=== PATIENT | male | born 1970 | race Caucasian/White ===

== ENCOUNTER → 2019-05-31 15:51 | Outpatient (CLI) | payer OTHER, SELFPAY ==
[2019-05-31 13:52] VITALS: BMI 27.1
--- NOTE | 2019-05-31 15:58 | RAD_ITS ---
STUDY: X-RAY - RIGHT SHOULDER REASON FOR EXAM: Male, 48 years old. Right shoulder pain for several months. TECHNIQUE: 4 view(s) of the shoulder. COMPARISON: None. FINDINGS: Normal glenohumeral articulation. Normal acromioclavicular joint. Normal acromion. Normal humeral head and visualized proximal humerus. The soft tissue structures are unremarkable. There is no demonstrated fracture. Normal visualized pulmonary apex. RAD/Shoulder min 2 Views IMPRESSION: Normal x-ray examination of the shoulder. Electronically Signed: Anisa Silvestre MD at 2:24 EDT , Service support ,
== END ==
PROVIDERS: Family Provider Internal Medicine; PCP Internal Medicine; Referring Provider Internal Medicine; Visit Provider Internal Medicine
DX: M25.511 Pain in right shoulder (principal)
CPT/HCPCS: 73030

== ENCOUNTER 2019-06-28 16:00 | Outpatient (RCR) | payer OTHER, SELFPAY ==
[2019-05-31 13:52] VITALS: BMI 27.1
--- NOTE | 2019-06-21 13:43 | HP.PTEVAL_ITS ---
Patient's Visit Information SAMI MURDOCK is a 48 year old M referred to Physical Therapy by Ange Yun MD with a diagnosis of R shoulder pain. Date of Evaluation: 06/10/19 Physical Therapist: Feliciano Cloud DPT - Visit Plan Frequency: 1-2x /Week Duration: 4-6 Weeks Plan: Start with DFM to bicep tendon, biceps eccentric loading, RTC strenghtneing/stability exercises. - Subjective Findings: Pt. is here today for his initial evaluation with diagnosis of R shoulder pain. He reports having increasing pain over the past 6 months, but has become really painful over the last 2 months. Pt. reports no mech of injury. No N/T. Pt. reports pain at anterior shoulder and lateral aspect of subacromial space. Pt. has increased pain at light and with reaching out to the side. He had an xray- no abnormalities noted. 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 Pt. thinks his increased sedintary lifestyle maybe has added to his issue. He has not tried any exercises, ice or heat. He has started taking meloxicam with mild relief. Pt. is hopeful to increase strength and decrease his pain. - Pain R shoulder Pain Intensity (Out of 10): 3 Pain Intensity Range: 1, 6 - Objective POSTURE: Pt. has rouned shoulders, but is able to correct with VCing. PALPATION: Pt. has pain along bicipital groove and further along long head of biceps. Pt. has pain at subacromial space, anterior portion. NEURO: normal bilaterally. ROM: L shoulder- full wthout increase in symptoms. R shoulder- flexion 170deg increase NW starting at ~130deg; abd 170deg increased pain starting ~130deg. functional IR L5 increase NW, functional ER C5 mild increase NW. MMT: LUE- 5/5 throughout. RUE: wrist/elbow 5/5, mild discomfort with supination. Shoulder- flexion 5-/5 NE, abd 5-/5 NE; ER 4+/5, IR 5/5; ext 5/5. - Special Tests R Shoulder Empty Can - SS: Positive R Shoulder Belly Press - SupScap: Negative R Shoulder Neer - Impingement: Positive R Shoulder Mckinney Laci - Impingement: Positive R Shoulder Biceps Load Test - Labrum: Negative R Shoulder Speeds Test - Labrum/Biceps: Positive - Goals Goal 1:: Pt. to be I with HEP. Goal Time Frame: 4-6 Weeks Goal 2:: Pt. to have full ROM shoulder ROM without increase in symptoms. Goal Time Frame: 4-6 Weeks Goal 3:: Pt. to have full strength in R shoulder without increase in symptoms. Goal Time Frame: 4-6 Weeks Goal 4:: Pt. to sleep throughout the night withotu increase in symptoms. Goal Time Frame: 4-6 Weeks Goal 5:: Pt. to complete all work duties without increase in symptoms. Goal Time Frame: 4-6 Weeks - Rehabilitation Potential Physical Therapy Diagnosis: Pt. has signs and symptoms consistent wtih R shoulder pain, most like biceps tendonitis and subsequent RTC tendonitis (supraspintus). Pt. would benefit from PT to work on RTC stability/strengthening, biceps tendon loading. Rehabilitation Potential: Excellent - Anticipated Interventions Patient/Client Instruction: Educate patient on: Condition, Plan of Care, Risk Factors, Benefits of Fitness Program For the Purpose of:: To improve self management, To prevent re-injury, To improve ability to perform tasks related to life management Therapeutic Exercise to Include: Strength training, Power training, Endurance training, Postural training, Flexibilty training, Passive ROM, Active ROM, Sc apular Strength/Stabilization For the Purpose of:: To decrease pain, To decrease swelling/inflammation, To increase ROM, To improve nutrient delivery to tissue, To increase oxygenation perfusion, To improve muscle performance and motor function, To improve health of tissue, To decrease soft tissue restriction, To increase flexibility/ROM Thank you for the opportunity to evaluate your patient. For Medicare and Medicare HMO plans, please review the plan of care and approve it. It will need to be FAXED BACK to us at [phone] for Medicare purposes. For Medicare only, by signing this I certify the plan of care. Please let me know if there are questions or concerns regarding this plan of care. Physician Signature:___ Date:
--- NOTE | 2019-07-01 09:38 | HP.PTREVAL_ITS ---
Ange Yun MD, It has been my pleasure to treat SAMI MURDOCK over the last 2 visits for R shoulder pain. Please see the progress note below for an update on the physical therapy plan of care! Subjective: Pt. reports being conserned about new elbow pain. He feels in the mornings that his arm is very weak and sore, but improves as he gets his arm moving. Pt. denies N/T. Pt. reporst being compliant with exercises x2 daily. Pt. continues to have anterior shoulder pain and elbow pain. Objective/Function: Pt. tolerated all strengthening exercises. Pt. contiunes to have presence of bicipital tendonitis and most likely supraspinatus involvement. Pt.is now describing icnreased weakness in RUE. Pt. is also complaining of increased elbow pain and stiffness. Pt. desires to return to physician at this point intime. Plan Plan: Pt. to follow back up with physician, then back with PT if needed. Pt. has been given HEP to work on stabilitya nd RTC strengthening. Goals Goal 1:: Pt. to be I with HEP. Goal Time Frame: 4-6 Weeks Goal Progress: Goal Met Goal 2:: Pt. to have full ROM shoulder ROM without increase in symptoms. Goal Time Frame: 4-6 Weeks Goal Progress: Progressing Goal 3:: Pt. to have full strength in R shoulder without increase in symptoms. Goal Time Frame: 4-6 Weeks Goal 4:: Pt. to sleep throughout the night withotu increase in symptoms. Goal Time Frame: 4-6 Weeks Goal Progress: Not Progressing Goal 5:: Pt. to complete all work duties without increase in symptoms. Goal Time Frame: 4-6 Weeks Goal Progress: Not Progressing Anticipated Interventions Patient/Client Instruction: Educate patient on: Condition, Plan of Care, Risk Factors, Benefits of Fitness Program For the Purpose of:: To improve self management, To prevent re-injury, To improve ability to perform tasks related to life management Therapeutic Exercise to Include: Strength training, Power training, Endurance training, Postural training, Flexibilty training, Passive ROM, Active ROM, Scapular Strength/Stabilization For the Purpose of:: To decrease pain, To decrease swelling/inflammation, To increase ROM, To improve nutrient delivery to tissue, To increase oxygenation perfusion, To improve muscle performance and motor function, To improve health of tissue, To decrease soft tissue restriction, To increase flexibility/ROM Please do not hesitate to contact me at [phone] by phone or Fax: if you have questions or concerns regarding this new plan of care! Sincerely, FRANCISCO JAVIER FuchsT
== END 2019-06-28 17:00 | disposition home or self-care (01) ==
LOC: PT 16:00
PROVIDERS: Family Provider Internal Medicine; PCP Internal Medicine; Referring Provider Internal Medicine; Visit Provider Internal Medicine
DX: M25.511 Pain in right shoulder (principal)
CPT/HCPCS: 97110; 97161

== ENCOUNTER → 2019-08-31 08:58 | Outpatient (CLI) | payer OTHER, SELFPAY ==
[2019-08-19 15:41] VITALS: BMI 27.1
--- NOTE | 2019-08-31 08:58 | MRI_ITS ---
STUDY: MRI RIGHT SHOULDER REASON FOR EXAM: Male, 49 years old. adhesive capsulitis right shoulder,weakness/pain TECHNIQUE: Standardized fat and water weighted pulse sequences were obtained in all 3 orthogonal planes. COMPARISON: None. FINDINGS: Mild supraspinatus and infraspinatus tendinosis and peritendinitis is but no macro tear or muscular atrophy. There is subscapularis tendinosis with tendon thickening, but without a demonstrated tendon tear. Normal teres minor tendon. Normal supraspinatus muscle. Normal infraspinatus muscle. Normal subscapularis muscle. Normal teres minor muscle. Normal glenohumeral articulation. There is a cortical erosion at the insertion of the infraspinatus tendon. Normal biceps labral complex. Normal intracapsular long biceps tendon. Chronic tear of the superior labrum from anterior to posterior (SLAP 2 tear). Dry fibroinflammatory capsulitis suggestive of clinical adhesive capsulitis. Normal rotator interval. Moderate acromioclavicular joint arthrosis with capsulitis and inferior osteophyte formation producing medial outlet stenosis. There is a Type II morphology (curved), with a neutral orientation. There is no subacromial-subdeltoid bursal fluid. Normal visualized coracohumeral and coracoacromial ligaments. Normal quadrilateral space. Normal axillary space. Normal deltoid muscle. Normal trapezius muscle. MRI/Upper Ext Joint Only(Routine) IMPRESSION: 1. Suspect clinical adhesive capsulitis. 2. Mild supraspinatus and infraspinatus tendinosis and peritendinitis is but no macro tear or muscular atrophy. 3. Chronic SLAP 2 tear. 4. Moderate, acromioclavicular joint arthrosis with capsulitis and osteophyte formation producing medial outlet stenosis. Electronically Signed: Rodo Reeves MD at 17:47 EST Tel , Service support ,
== END ==
PROVIDERS: PCP Internal Medicine; Referring Provider Orthopaedic Surgery; Visit Provider Orthopaedic Surgery
DX: M75.01 Adhesive capsulitis of right shoulder (principal)
CPT/HCPCS: 73221

== ENCOUNTER 2019-09-13 08:41 | Outpatient (RCR) | payer OTHER, SELFPAY ==
[2019-09-13 08:05] VITALS: BMI 27.1
--- NOTE | 2019-09-13 09:58 | HP.PTEVAL_ITS ---
Patient's Visit Information SAMI MURDOCK is a 49 year old M referred to Physical Therapy by Felipe Fenton DO with a diagnosis of RIGHT SHOULDER ADHESIVE CAPSULITUS,LABRAL TEARING. Date of Evaluation: 09/13/19 Physical Therapist: Richmond Qureshi, PT, Cert MDT, OCS - Visit Plan Frequency: 2x /Week Duration: 5WEEKS Plan: PT INTERVETIONS MHP/CP ,PROM /AAROM,MANUAL THERAPY PROM,G-H JOINTS MOBS 2- 4,SCAPULAR MOBS - Subjective Findings: This 49 y/o male presents to physical therapy with right shoulder pain adhesive capsulitis . Patient 8 months developed shoulder pain which progressivelly worse with gradual loss of ROM. Patient had PT in Nov with exercises. Seen intially seen family DR eventually seen DR Fenton recommded PT for ROM and did injection today today.MRI showed slap 2 labral tear ,osteophyete. Patient melocicam. Patient has pain with limitations with activilty [place] ,housework tasks and job demands. Patient denies parathesia/tingling. Patient symptoms affects sleeping. Patient symptoms affects QOL. SOCAIL : SINGLE. 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 PALPATION: tender AC. NEURO: INTACT. AROM: shoulder flexion 120 degrees ,abd 90 degrees,ER 60 degree IR S2. SCAPULAR -HUMERAL FUNCTION: < 1:1. G-H JOINT MOBLITY: mod restricted all planes. MMT: RTC 4-/5 ,deltoid 4-/5,scapular 3/5 - Special Tests R Shoulder Supine Impingement Test - RC Tear: Negative R Shoulder Drop Sign - IS Test: Negative R Shoulder Empty Can - SS: Positive R Shoulder Belly Press - SupScap: Negative R Shoulder Neer - Impingement: Positive R Shoulder Mckinney Laci - Impingement: Positive R Shoulder Speeds Test - Labrum/Biceps: Negative R Shoulder AC Resisted - AC: Negative R Shoulder Shrug Sign - OA/Adhesive Capsulitis: Positive - Goals Goal 1:: Patient to be Independant with HEP Goal Time Frame: 4-6 Weeks Goal 2:: Patient decrease shoulder pain by 70% or> to improve function. Goal Time Frame: 4-6 Weeks Goal 3:: Patient to increase ROM shoulder flexion 150 degrees ,abduction 150degrees ,ER 90 IR L1 to improve function. Goal Time Frame: 4-6 Weeks Goal 4:: Patient increase strength of rigt shoulder by 4/5 RTC and deltoid 4/5 to improve function. Goal Time Frame: 4-6 Weeks Goal 5:: Patient to improve quick dash by 10 points or > to improve QOL and function. Goal Time Frame: 4-6 Weeks - Rehabilitation Potential Physical Therapy Diagnosis: This patient has adhesive capsultitus with pain ,decrease ROM,strength ,poor Scapular -humeral function,capsular restriction impairs ADLS' and housework tasks ,job demnads. Rehabilitation Potential: Good - Anticipated Interventions Patient/Client Instruction: Educate patient on: Condition, Plan of Care For the Purpose of:: To decrease pain, To improve nutrient delivery to tissue, To improve muscle performance and motor function, To improve ability to perform ADL's, To increase tolerance to activity/condition/position, To improve performance and independence with ADL's, To improve ability of physical actions for home/community/work/leisure, To improve health of tissue, To decrease soft tissue restriction, To increase flexibility/ROM, To reduce risk of recurrence, To improve ability to perform tasks related to life management Therapeutic Exercise to Include: Postural training, Flexibilty training, Passive ROM, Active ROM Comment: SHOULDER For the Purpose of:: To decrease pain, To increase ROM, To improve nutrient delivery to tissue, To increase oxygenation perfusion, To improve muscle performance and motor function, To improve ability to perform ADL's, To improve performance and independence with ADL's, To improve ability of physical actions for home/community/work/leisure, To improve health of tissue, To decrease soft tissue restriction, To increase flexibility/ROM Manual Therapy Techniques to Include: Mobilization Comment: G-H GR 2-4 For the Purpose of:: To decrease pain, To increase ROM, To improve muscle performance and motor function, To increase tolerance to activity/condition/position, To improve ability of physical actions for home/community/work/leisure, To improve health of tissue, To decrease soft tissue restriction, To increase flexibility/ROM Cryotherapy (ice pack, ice massage): Yes Thermo therapy (hot pack): Yes For the Purpose of:: To decrease pain, To increase ROM, To improve muscle performance and motor function, To improve ability to perform ADL's, To improve health of tissue, To decrease soft tissue restriction, To increase flexibility/ROM Thank you for the opportunity to evaluate your patient. For Medicare and Medicare HMO plans, please review the plan of care and approve it. It will need to be FAXED BACK to us at [phone] for Medicare purposes. For Medicare only, by signing this I certify the plan of care. Please let me know if there are questions or concerns regarding this plan of care. Physician Signature: Date:
--- NOTE | 2019-11-11 13:40 | HP.PT.NRP ---
SAMI MURDOCK was seen in my office for initial evaluation on 09/13/19. The following Plan of Care was established for this patient: Initial Frequency: 2x /Week Initial Duration: 5WEEKS Patient/Client Instruction: Educate patient on: Condition, Plan of Care For the Purpose of:: To decrease pain, To improve nutrient delivery to tissue, To improve muscle performance and motor function, To improve ability to perform ADL's, To increase tolerance to activity/condition/position, To improve performance and independence with ADL's, To improve ability of physical actions for home/community/work/leisure, To improve health of tissue, To decrease soft tissue restriction, To increase flexibility/ROM, To reduce risk of recurrence, To improve ability to perform tasks related to life management Therapeutic Exercise to Include: Postural training, Flexibilty training, Passive ROM, Active ROM For the Purpose of:: To decrease pain, To increase ROM, To improve nutrient delivery to tissue, To increase oxygenation perfusion, To improve muscle performance and motor function, To improve ability to perform ADL's, To improve performance and independence with ADL's, To improve ability of physical actions for home/community/work/leisure, To improve health of tissue, To decrease soft tissue restriction, To increase flexibility/ROM Manual Therapy Techniques to Include: Mobilization Comment: G-H GR 2-4 For the Purpose of:: To decrease pain, To increase ROM, To improve muscle performance and motor function, To increase tolerance to activity/condition/position, To improve ability of physical actions for home/community/work/leisure, To improve health of tissue, To decrease soft tissue restriction, To increase flexibility/ROM Cryotherapy (ice pack, ice massage): Yes Thermo therapy (hot pack): Yes For the Purpose of:: To decrease pain, To increase ROM, To improve muscle performance and motor function, To improve ability to perform ADL's, To improve health of tissue, To decrease soft tissue restriction, To increase flexibility/ROM This patient was last seen in our office . Pertinent comments regarding their Physical therapy will appear below: Patient had seen for PT for HEP shoulder .. MRI showed labral tear . At this point I will be discontinuing this patient from physical therapy. I would be happy to see this patient again in the future if found appropriate by the physician. Thank you! Richmond Qureshi, PT, Cert MDT, OCS
== END 2019-09-13 19:00 | disposition home or self-care (01) ==
LOC: PT 08:41
PROVIDERS: PCP Internal Medicine; Referring Provider Orthopaedic Surgery; Visit Provider Orthopaedic Surgery
DX: M75.01 Adhesive capsulitis of right shoulder (principal); S43.401D Unspecified sprain of right shoulder joint, subsequent encounter
CPT/HCPCS: 97110; 97161

== ENCOUNTER 2025-04-25 07:27 | Day surgery (SDC) | payer OTHER, SELFPAY ==
[2025-04-25] VITALS (8 sets, daily range): BP systolic 95–130; BP diastolic 62–86; PULSE 52–63; RESP 14–16; TEMP 36.1–36.3; O2SAT 97–100; BMI 27.0
--- OUTSIDE RECORDS SUMMARY | 2025-04-25 07:31 | XMS RPT_ITS | CCD ---
Author Organization [facility] Care Team Providers Care Dramatic Reader Name Role Phone Juanis COLE Luke E Unavailable Juanis COLE Luke E Unavailable [facility] Unavailable Unavailable Unavailable [facility] Unavailable Jessica Harrison LPN Unavailable Tawnya Topete LPN Unavailable Unavailable JUANIS, LUKE E Consulting Unavailable RAY VILLANUEVA Attending Unavailable RAY VILLANUEVA Primary Care Unavailable RAY VILLANUEVA Admitting Unavailable JUANIS, LUKE E Referring Unavailable PROVIDER, UNKNOWN Consulting Unavailable EVAN MARTINEZ CNP Attending Unavailable EVAN MARTINEZ CNP Primary Care Unavailable EVAN MARTINEZ CNP Admitting Unavailable Froylan Bran LPN Unavailable Unavailable Juanis, Luke Referring Unavailable Juanis, Luke Primary Care Unavailable Martinez Mancuso Attending Unavailable Medications Current Medications Medication Drug Class(es) Dates Sig (Normalized) Sig (Original) atorvastatin 20 mg oral tablet (1 source) HMG-CoA Reductase Inhibitor Start: 03-03-2025 atorvastatin 20 mg tablet ; 1 (one) tablet QHS for 30 days Quantity: 30 {Tablet} Refills: 5 Ordered: 03-Mar-2025 DOUGLAS Wagoner Start: 03-Mar-2025 Start: 03-03-2025 atorvastatin 2 0 mg tablet ; 1 (one) tablet QHS for 30 days Quantity: 30 {Tablet} Refills: 5 Ordered: 03-Mar-2025 DOUGLAS Wagoner E Start: 03-Mar-2025 lisinopril 10 mg oral tablet (12 sources) Angiotensin Converting Enzyme Inhibitor Start: 02-28-2025 lisinopriL 10 mg tablet ; 1 (one) tablet daily for 90 days Quantity: 90 {Tablet} Refills: 3 Ordered: 28-Feb-2025 DOUGLAS Wagoner Start: 28-Feb-2025 Start: 02-28-2025 lisinopriL 10 mg tablet ; 1 (one) tablet daily for 90 days Quantity: 90 {Tablet} Refills: 3 Ordered: 28-Feb-2025 DOUGLAS Wagoner Start: 28-Feb-2025 Start: 02-19-2025 lisinopriL 10 mg tablet ; 1 (one) tablet daily for 0 days Quantity: 30 {Tablet} Refills: 0 Ordered: 19-Feb-2025 DOUGLAS Wagoner Start: 19-Feb-2025 Start: 11-20-2024 lisinopriL 10 mg tablet ; 1 (one) tablet daily for 0 days Quantity: 90 {Tablet} Refills: 0 Ordered: 20-Nov-2024 DOUGLAS Wagoner Start: 20-Nov-2024 Start: 08-19-2024 lisinopriL 10 mg tablet ; 1 (one) tablet daily for 0 days Quantity: 90 {Tablet} Refills: 0 Ordered: 19-Aug-2024 DOUGLAS Wagoner Start: 19-Aug-2024 Start: 02-21-2024 lisinopriL 10 mg tablet ; 1 (one) tablet daily for 0 days Quantity: 90 {Tablet} Refills: 1 Ordered: 21-Feb-2024 DOUGLAS Wagoner Start: 21-Feb-2024 Start: 11-20-2023 lisinopriL 10 mg tablet ; 1 (one) tablet daily for 0 days Quantity: 30 {Tablet} Refills: 2 Ordered: 20-Nov-2023 DOUGLAS Wagoner Start: 20-Nov-2023 Start: 08-30-2023 lisinopriL 10 mg tablet ; 1 (one) tablet daily for 0 days Quantity: 30 {Tablet} Refills: 2 Ordered: 30-Aug-2023 DOUGLAS Wagoner Start: 30-Aug-2023 Completed/Discontinued Medications Medication Drug Class(es) Dates Sig (Normalized) Sig (Original) omeprazole 20 mg delayed release oral capsule (12 sources) Proton Pump Inhibitor End: 02-28-2025 omeprazole 20 mg capsule,delayed release ; daily (20 mg) End: 28-Feb-2025 Status: Inactive Problems Active Problems Problem Classification Problem Date Documented Da te Episodic/Chronic Disorders of lipid metabolism (7 sources) Dyslipidemia; Translations: [Hyperlipidemia, unspecified] 02-28-2025 Chronic Essential hypertension (20 sources) Hypertensive disorder; Translations: [Essential (primary) hypertension] 08-30-2023 Chronic Headache; including migraine (16 sources) Headache; Translations: [Headache] 02-26-2024 Episodic Other screening for suspected conditions (not mental disorders or infectious disease) (20 sources) Patient encounter status; Translations: [Encounter for screening for lipoid disorders] 08-30-2023 Episodic Unclassified (3 sources) Follow up for chronic condition - The patient is here for follow-up of hypertension. The patient always takes the prescribed medications. No side effects noted. The patient has an active lifestyle but no regular exercise program. The patient's out of office blood pressure checks occur occasionally. The patient states that headaches are rarely noted. 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 The patient has inadequate caloric intake and takes no supplemental vitamins & iron. The patient exercises 3 - 4 times per week. The patient sleeps 7 hours per night. 08-30-2023 Unclassified (8 sources) Hypertension - The onset of the hypertension has been gradual. The hypertension has been occurring in a recurrent pattern for 1 week. The course has been constant. The JNC classification is Stage 1 hypertension - 140-159 or 90-99 (151/90, 140/80; patient does not write BP down, approximate values) The symptoms include dyspnea on exertion ( but none since), fatigue and headache, but do not include chest pain, edema, palpitations, visual changes or shortness of breath. Habits include non-smoker and medications as directed. There is no family history of hypertension, myocardial infarction before age 55 or stroke. Note for Hypertension: patient is currently on lisinopril 10 mg; patient gets a weird feeling in his head when BP is high - is the top of his head and said it does not feel right, it feels like pressure (this has been since August); pt has been on lisinopril 10 mg since 08/30/2023 02-26-2024 Results Test Name Value Interpretation Reference Range Facility [facility] 03-01-2025 Albumin [Mass/Vol] 4.6 g/dL Normal 3.6-5.1 [facility] Comment on above: Performed By: #### 5 363, 7600, [id number] #### [facility] [place] [address] [employer]: Jonathan Gaspar MD Albumin/Globulin [Mass ratio] 2.1 {ratio} Normal 1.0-2.5 [facility] Comment on above: Performed By: #### 5 363, 7600, 44465 #### [facility] [place] [address] [employer]: Jonathan Gaspar MD ALP [Catalytic activity/Vol] 55 U/L Normal 35-144 [facility] Comment on above: Performed By: #### 5 363, 7600, 71895 #### [facility] [place] [address] [employer] [place]: Jonathan Gaspar MD ALT [Catalytic activity/Vol] 31 U/L Normal 9-46 [facility] Comment on above: Performed By: #### 5 363, 7600, 02546 #### [facility] [place] [address] [employer]: Jonathan Gaspar MD AST [Catalytic activity/Vol] 21 U/L Normal 10-35 [facility] Comment on above: Performed By: #### 5 363, 7600, 49671 #### [facility] [place] [address] [employer]: Jonathan Gaspar MD Bilirubin [Mass/Vol] 0.5 mg/dL Normal 0.2-1.2 [facility] Comment on above: Performed By: #### 5 363, 7600, 91176 #### [facility] [address], [address] [place] [address] [place]: Jonathan Gaspar MD BUN/CREATININE RATIO SEE NOTE: Normal 6-22 [facility] Comment on above: Result Comment: Not Reported: BUN and Creatinine are within reference range. Performed By: #### 5 363, 7600, 91986 #### [facility] of [address], [address] [place] [address] [place] [place]: Jonathan Gaspar MD Calcium [Mass/Vol] 9.3 mg/dL Normal 8.6-10.3 [facility] Comment on above: Performed By: #### 5 363, 0, 04645 #### [facility] [address], [address] [place] [address] [place]: Jonathan Gaspar MD Chloride [Moles/Vol] 103 mmol/L Normal 98-110 [facility] Comment on above: Performed By: #### 5 363, 0, 78779 #### [facility] [place] [address] [employer] [place]: Jonathan Gaspar MD CO2 [Moles/Vol] 24 mmol/L Normal 20-32 [facility] Comment on above: Performed By: #### 5 363, 7600, 07971 #### [facility] [place] [address] [employer]: Jonathan Gaspar MD Creatinine [Mass/Vol] 1.05 mg/dL Normal 0.70-1.30 [facility] Comment on above: Performed By: #### 5 363, 7600, 65020 #### [facility] of [place] [address] [address] [address]: Jonathan Gaspar MD GFR/1.73 sq M.predicted among non-blacks MDRD (S/P/Bld) [Vol rate/Area] 84 mL/min/{1.73_m2} Normal > OR = 60 [facility] Comment on above: Performed By: #### 5 363, 7600, 25209 #### [facility] of [place] [address] [place] [place]: Jonathan Gaspar MD Globulin (S) [Mass/Vol] 2.2 g/dL Normal 1.9-3.7 [facility] Comment on above: Performed By: #### 5 363, 7600, 91968 #### [facility] of [place] [address] [employer] [place]: Jonathan Gaspar MD Glucose [Mass/Vol] 96 mg/dL Normal 65-99 [facility] Comment on above: Result Comment: Fasting reference interval Performed By: #### 5 363, 7600, 94591 #### [facility] of [place] [address] [employer]: Jonathan Gaspar MD Potassium [Moles/Vol] 4.4 mmol/L Normal 3.5-5.3 [facility] Comment on above: Performed By: #### 5 363, 0, 79942 #### [facility] of [place] [address] [employer] [place]: Jonathan Gaspar MD Protein [Mass/Vol] 6.8 g/dL Normal 6.1-8.1 [facility] Comment on above: Performed By: #### 5 363, 0, 51399 #### [facility] of [place] [address] [employer]: Jonathan Gaspar MD Sodium [Moles/Vol] 137 mmol/L Normal 135-146 [facility] Comment on above: Performed By: #### 5 363, 7600, 96940 #### [facility] of [place] [address] [employer] [place]: Jonathan Gaspar MD Urea nitrogen [Mass/Vol] 13 mg/dL Normal 7-25 [facility] Comment on above: Performed By: #### 5 363, 7600, 67732 #### [facility] [address], [address] [place] [address] [employer]: Jonathan Gaspar MD LIPID PANEL, [place] [address]- Cholesterol [Mass/Vol] 228 mg/dL High <200 [facility] Comment on above: Performed By: #### 5 363, 7600, 46037 #### [facility] [address], [address] [place] [address] [employer]: Jonathan Gaspar MD Cholesterol in HDL [Mass/Vol] 37 mg/dL Low > OR = 40 [facility] Comment on above: Performed By: #### 5 363, 7600, 63948 #### [facility] [address], [address] [place] [address] [employer] [place]: Jonathan Gaspar MD Cholesterol in LDL [Mass/Vol] 149 mg/dL High [facility] Comment on above: Result Comment: Refe rence range: <100 Desirable range <100 mg/dL for primary prevention; <70 mg/dL for patients with CHD or diabetic patients with > or = 2 CHD risk factors. LDL-C is now calculated using the Jose Ramon-Rajiv calculation, which is a validated novel method providing better accuracy than the Friedewald equation in the estimation of LDL-C. Jose Ramon SANDOVAL et al. CALI. 2013;310(19): 3981-6109 (http://education.EyeScribes.Salesforce Radian6/faq/DUT013) Performed By: #### 5 363, 7600, 98063 #### [facility] [address], [address] [place] [address] [employer] [place]: Jonathan Gaspar MD Cholesterol.total/Ch olesterol in HDL [Mass ratio] 6.2 {ratio} High <5.0 [facility] Comment on above: Performed By: #### 5 363, 7600, 75272 #### [facility] [address], [address] [place] [address] [employer]: Jonathan Gaspar MD NON HDL CHOLESTEROL 191 mg/dL (calc) High <130 [facility] Comment on above: Result Comment: For patients with diabetes plus 1 major ASCVD risk factor, treating to a non-HDL-C goal of <100 mg/dL (LDL-C of <70 mg/dL) is considered a therapeutic option. Performed By: #### 5 363, 7600, 64179 #### [facility] [address], [address] [place] [address] [employer] [place]: Jonathan Gaspar MD Triglyceride [Mass/Vol] 258 mg/dL High <150 [facility] Comment on above: Result Comment: If a non-fasting specimen was collected, consider repeat triglyceride testing on a fasting specimen if clinically indicated. Aponte et al. J. of Clin. Lipidol. 2015;9:129-169. Performed By: #### 5 363, 7600, 42330 #### [facility] [address], [address] [place] [address] [employer] [place]: Jonathan Gaspar MD PSA, TOTALon 03-01-2025 PSA, TOTAL 0.40 ng/mL Normal < OR = 4.00 [facility] Comment on above: Result Comment: The total PSA value from this assay system is standardized against the WHO standard. The test result will be approximately 20% lower when compared to the equimolar-standardized total PSA (Alayna Murrieta). Comparison of serial PSA results should be interpreted with this fact in mind. This test was performed using the Siemens chemiluminescent method. Values obtained from different assay methods cannot be used interchangeably. PSA levels, regardless of value, should not be interpreted as absolute evidence of the presence or absence of disease. Performed By: #### 5 363, 7600, 73615 #### [facility] [address], [address] [place] [address] [employer] [place]: Jonathan Gaspar MD Laboratory - Chemistry and C hemistry - challengeon 02-28-2025 Albumin [Mass/Vol] 4.6 g/dL Normal 3.6 - 5.1 g/dL [facility], [facility] Albumin/Globulin [Mass ratio] 2.1 {ratio} Normal 1.0 - 2.5 [facility] ALP [Catalytic activity/Vol] 55 U/L Normal 35 - 144 U/L [facility]. ALT [Catalytic activity/Vol] 31 U/L Normal 9 - 46 U/L [facility]. AST [Catalytic activity/Vol] 21 U/L Normal 10 - 35 U/L [facility]. Bilirubin [Mass/Vol] 0.5 mg/dL Normal 0.2 - 1 .2 mg/dL [facility], [facility]. Calcium [Mass/Vol] 9.3 mg/dL Normal 8.6 - 10. 3 mg/dL [facility]. Chloride [Moles/Vol] 103 mmol/L Normal 98 - 11 0 mmol/L [facility], [facility]. Cholesterol [Mass/Vol] 228 mg/dL Abnormal [facility]. Cholesterol in HDL [Mass/Vol] 37 mg/dL Abnormal [facility]. Cholesterol in LDL [Mass/Vol] 149 mg/dL Abnormal [facility], [facility]. CO2 [Moles/Vol] 24 mmol/L Normal 20 - 32 mmol/L [facility], [facility]. Creatinine [Mass/Vol] 1.05 mg/dL Normal 0.70 - 1.30 mg/dL [facility], [facility]. GFR/1.73 sq M.predicted among non-blacks MDRD (S/P/Bld) [Vol rate/Area] 84 mL/min/{1.73_m2} Normal [facility], [facility] Glucose [Mass/Vol] 96 mg/dL Normal 65 - 99 mg/dL [facility] Potassium [Moles/Vol] 4.4 mmol/L Normal 3.5 - 5.3 mmol/L [facility] Protein [Mass/Vol] 6.8 g/dL Normal 6.1 - 8.1 g/dL [facility], [facility]. Sodium [Moles/Vol] 137 mmol/L Normal 135 - 146 mmol/L [facility]. Triglyceride [Mass/Vol] 258 mg/dL Abnormal [facility]. Urea nitrogen [Mass/Vol] 13 mg/dL Normal 7 - 25 mg/dL [facility]. No Panel Informationon 02-28 BUN/CREATININE RATIO SEE NOTE: Normal 6 - [address] [facility] [place] [facility] [employer]. CHOL/HDLC RATIO 6.2 Abnormal [facility].; [facility] [employer]. GLOBULIN 2.2 Normal 1.9 - 3.7 [facility]. NON HDL CHOLESTEROL 191 Abnormal [facility]. PSA, TOTAL 0.40 ng/mL Normal [facility] [place] [employer], [employer]. ED MED ADMINISTRATION DETAIL on 09-02-2024 ED MED ADMINISTRATION DETAIL [employer] Medication Administration Record [address] [address] [id number] 09/02/2024 Patient: SAMI MURDOCK Sex: Male : 1970 Age: 54y MEASUREMENTS: Wt: 88.5 kg, Ht/Raciel: 70.0 in, BMI: 27.98 ALLERGIES: No known drug allergies Medication Ordered Medication Administration Date/Time Normal [facility] ED NURSES CLINICAL NOTEon ED NURSES CLINICAL NOTE Nurse Narrative Nurse Clinical Narrative [address] [address] [id number] 09/02/2024 Patient: SAMI MURDOCK Sex: Male : 1970 Age: 54y Disposition: Discharge to Home Disposition Decision Time: 10:15 09/02/2024 Departure Time: 10:21 09/02/2024 TRIAGE Arrived by private vehicle. Historian: patient. Primary physician (Thong Adair). Triage time: 08:48 09/02/2024. Acuity: LEVEL 3. Chief Complaint: (left flank/side pain). Onset. (last Monday). ( Pt fell last Monday injuring his left flank, back. Pt states he coughed last night and it made the pain worse.). SEPSIS SCREEN: NEGATIVE. SIRS criteria negative. No possible sources of infection. -- 08:52 09/02/24 CHRISTINA Enriquez R.N. 08:48 09/02/24. BP: 135/89 MAP: 104. HR: 70. RR: 16. O2 saturation: 100% Temperature: 97.5 F. Pain level now 04/16. -- 08:49 09/02/24 CHRISTINA Enriquez R.N. Measurements: 08:51 09/02/24 Wt: 88.5 kg, Ht/Raciel: 70.0 in, BMI: 27.98 -- 08:51 09/02/24 CHRISTINA Enriquez R.N. Medications: omeprazole 40 mg capsule,delayed release: TAKE 1 CAPSULE BY MOUTH ONCE DAILY -- 13:20 09/02/24 CHRISTINA Enriquez R.N. lisinopril 10 mg tablet: TAKE 1 TABLET BY MOUTH ONCE DAILY -- 13:20 09/02/24 CHRISTINA Enriquez R.N. 1 of 3 Nurse Narrative Allergies: no known drug allergies -- 08:50 09/02/24 CHRISTINA Enriquez R.N. Problems: Hypertension: Active -- 08:50 09/02/24 CHRISTINA Enriquez R.N. Gastroesophageal Reflux Disease: Active -- 08:50 09/02/24 CHRISTINA Enriquez R.N. ADDITIONAL SURGERIES: elbow surgery -- 08:50 09/02/24 CHRISTINA Enriquez R.N. History 08:48 09/02/24. PAST MEDICAL HX: Immunizations not up to date. SOCIAL HX: Never smoker. Occasional alcohol use. No drug use. The patient has not traveled outside the [place] Infectious disease exposure: No infectious disease exposure. ABUSE ASSESSMENT: The patient answered yes to the question(s) Do you feel safe in your home? and no to the question(s) Are you afraid to go home?. SELF HARM ASSESSMENT: Self harm assessment was performed. The patient answered no to the question(s) Have you recently felt down, depressed, or hopeless? and Do you have thoughts of harming or killing yourself?. FALL RISK ASSESSMENT: Fall risk assessment completed. No risk factors identified. -- 08:52 09/02/24 CHRISTINA nEriquez R.N. Interventions 08:48 09/02/24. Advanced care plan discussed with patient. Patient does not have advanced directive. -- 08:52 09/02/24 CHRISTINA Enriquez R.N. PHYSICAL ASSESSMENT 2 of 3 Nurse Narrative 08:56 09/02/24. ( Pt arrives ambulatory to ER#6 c/o left sided posterior back/side pain. Pt offers he fell last Monday and then coughed hard last night and states he was not able to get up from bed without pain. PT has no obvious deformity noted. Pain worse with breathing). GENERAL / NEURO / PSYCH: Alert. Appears in no acute distress. HEENT: Mucous membranes are pink. RESPIRATORY: Respirations not labored. Breath sounds within normal limits. CVS: Normal sinus rhythm noted. Capillary refill less than 2 seconds. SKIN: Skin is warm and dry. -- 09:11 09/02/24 CHRISTINA Enriquez R.N. NURSING PROGRESS NOTES 09:22 09/02/24. Patient walked back from radiology with [employer]. -- 10:09/02/24 CHRISTINA Enriquez R.N. DISPOSITION / DISCHARGE Departure time: 10:21 09/02/2024. Condition at departure: unchanged. Discharge instructions provided and reviewed with the patient. Work note given. Patient verbalized understanding. Written instructions provided in Sami. The patient was discharged by the physician. The patient was discharged home. The patient left ambulatory and via private vehicle. Patient driving. -- 10:09/02/24 CHRISTINA Enriquez R.N. (Electronically signed by Catherine Enriquez R.N. 09/02/24 13:20:52 EST) Generated by [facility] 3 of 3 Normal [facility] ED ORDER SHEET (CPOE ONLY)on 09-02-2024 ED ORDER SHEET (CPOE ONLY) Order Sheet Order Sheet [facility] [address] [facility] [place] [address] [id number] 09/02/2024 Patient: SAMI MURDOCK Sex: Male : 1970 Age: 54y MEASUREMENTS: Wt: 88.5 kg, Ht/Raciel: 70.0 in, BMI: 27.98 ALLERGIES: No known drug allergies MEDICATION/IV/DRIP/F LUID ORDERS Order Description Priority Entered Acknowledged Completed LAB ORDERS Order Description Priority Entered Acknowledged Collected Completed DIAGNOSTIC STUDY ORDERS Order Description Priority Entered Acknowledged Completed Ribs L w/Chest Expiration Stat Stat 09:04 09/02/2024 09:11 Ray Villanueva M.D. 09/02/2024 Catherine Enriquez R.N. Reason for Study: Trauma/Injury STAFF ORDERS Order Description Priority Entered Acknowledged Collected Completed [Electronically signed by Ray Villanueva M.D. (09/02/2024 14:57 EST)] [address] [facility] ED PHYSICIAN CLINICAL REPORT on 09-02-2024 ED PHYSICIAN CLINICAL REPORT Narrative Physician Clinical Narrative [address] [address] [id number] 09/02/2024 Patient: SAMI MURDOCK Sex: Male : 1970 Age: 54y Disposition: Discharge to Home Disposition Decision Time: 10:15 09/02/2024 Departure Time: 10:21 09/02/2024 Measurements Wt: 88.5 kg, Ht/Raciel: 70.0 in, BMI: 27.98 Initial Vital Sign Measured Time BP MAP HR RR O2Sat ETCO2 Temp Pain GCS RTS 08:48 09/02/2024 135/89 104 70 16 100% 97.5 F 9 Time Seen: 08:55 09/02/2024. Historian- patient. HISTORY OF PRESENT ILLNESS Chief Complaint: Injury to CHEST and BACK and CHEST. Location of injuries- (To posterior lateral rib cage on the left.). The injury occurred about 1 weeks ago. Fell: due to ice. ( slipped and fell on ice about a week ago. Had pain to the left posterolateral rib cage would seem to improve slightly. However yesterday he coughed and had a sudden onset more severe pain which by this morning was quite severe. Any truncal movement is quite painful). Occurred at home. The patient complains of moderate pain. No blow to the head, neck pain, loss of consciousness or seizure. Not dazed. REVIEW OF SYSTEMS 1 of 5 Narrative GI: No nausea or vomiting. RESPIRATORY: The patient has had difficulty breathing (Mild pleuritic pain on the left with deep breathing. more so with coughing). EYES: No loss of vision. EARS: No hearing loss. NEUROLOGICAL: No numbness, weakness or headache. PAST HISTORY See nurses notes. Hypertension. Gastroesophageal Reflux Disease: [Active] Hypertension: [Active] Surgeries: elbow surgery Medications: lisinopril 10 mg tablet: TAKE 1 TABLET BY MOUTH ONCE DAILY omeprazole 40 mg capsule,delayed release: TAKE 1 CAPSULE BY MOUTH ONCE DAILY Allergies: no known drug allergies SOCIAL HISTORY Does not use tobacco. 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 ADDITIONAL NOTES The nursing notes have been reviewed. PHYSICAL EXAM Vital Signs: Have been reviewed. Appearance: Alert. Oriented X3. No acute distress. Head: Head non-tender. No swelling of head. Eyes: Pupils equal, round and reactive to light. EOM intact. Neck: Painless ROM. Non-tender. CVS: Heart sounds normal. Respiratory: No respiratory distress. Chest wall injury: moderate tenderness. (mid to lower posterolateral rib cage. No crepitus with palpation). No ecchymosis. No deformity. Breath sounds normal. 2 of 5 Narrative Abdomen: No visible injury. Soft and nontender. Bowel sounds normal. Skin: Skin intact. Skin warm and dry. Normal skin color. Neuro: No motor deficit. LABS, X-RAYS, AND EKG X-Rays: (x-ray were x-rays were read as negative by radiologist. To me it looks like there is a fracture at the posterior 11th rib possibly a minimally nondisplaced fracture of the 10th this is certainly consistent with his clinical exam.). Sternum / Ribs X-rays: On the left, 11th rib fracture(s) present posteriorly. Diagnostic Study Tests: RIBS LT UNILAT W/CHEST EXPIRATION Final EXAM Date: 09/02/2024 09:48:00 EST MsgRcvd: 09/02/2024 09:[address] [address] Patient: SAMI MURDOCK Phone#: : 1970 Age: 54 Gender: M Pt. Type: ER Account: [id number] Location: 052 Ordering: RAY VILLANUEVA Exam Date: 09/02/2024/9:22 Family Phys: Charge Code: 120936 Physician: Cidra Order #: [id number] Dose#: PROCEDURE: X-RAY RIBS LT UNILAT WITH EXPIRATION CHEST COMPARISON: None. INDICATIONS: Trauma. FINDINGS: LUNGS: Normal. No significant pulmonary parenchymal abnormalities. VASCULATURE: Normal. Unremarkable pulmonary vasculature. CARDIAC: Normal. No cardiac silhouette abnormality or cardiomegaly. MEDIASTINUM: Normal. No visible mass or adenopathy. PLEURA: Normal. No effusion or pleural thickening. BONES: Normal. No fracture or visible bony lesion. OTHER: Negative. 3 of 5 Narrative CONCLUSION: No acute disease. 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 COORDINATION OF CARE: Consult called (09:07 09/02/2024). MEDICAL DECISION MAKING: MEDICAL COMPLEXITY MODERATE. Pertinent clinical findings include the significant mechanism of injury. The differential diagnosis includes, but is not limited to, rib fractures and soft tissue injury. The diagnosis appears to be evident. (I disagree with the radiology interpretation and feel that ther (more content not included)... Normal [facility] ED SUPER BILLon 09-02-2024 ED [facility] BILL [facility] [address] [place] [address] [id number] 09/02/2024 Patient: SAMI MURDOCK Sex: Male : 1970 Age: 54y Item Professional Category Description Facility Code Code Quantity Fee Total Nurse/E/M EMERGENCY 853541 1 $0.00 $0.00 DEPARTMENT VISIT MODERATE SEVERITY (64560) Grand Total $0.00 Providers Ray Villanueva M.D. Chief Complaint Injury to CHEST and BACK and CHEST. Principal Diagnosis Acute traumatic pain. Left rib fracture. 1 of 2 [facility] ICD-10 Codes G89.11: Acute pain due to trauma S22.32xA: Fracture of one rib, left side, initial encounter for closed fracture 2 of 2 Normal [facility] ED VISIT SUMMARYon ED VISIT SUMMARY Visit Overview Visit Overview [facility] [address] [place] [address] [id number] 09/02/2024 Patient: SAMI MURDOCK Sex: Male : 1970 Age: 54y 09/02/2024 02:57 PM EST ED Arrival:08:45 09/02/2024 EST Status: Recent Travel:no Language:eng Adv Directive:No Isolation Status: Ethnicity:N Fall Risk:no risk Infectious Disease Exposure:no Measurements:5'10 / 177.8 Self-Harm Status:risk Sepsis Screen:negative cm 195.0 lb / 88.5 kg Chief Complaint:(last Monday ), (left flank/side pain ), (Luke Mana ), and (Pt fell last Monday injuring his left flank, back. Pt states he coughed last night and it made the pain worse. ) ALLERGIES No Known Drug Allergies HOME MEDICATIONS lisinopril 10 mg tablet: TAKE 1 TABLET BY MOUTH ONCE DAILY omeprazole 40 mg capsule,delayed release: TAKE 1 CAPSULE BY MOUTH ONCE DAILY 1 of 3 Visit Overview PAST MEDICAL HISTORY / PROBLEMS Gastroesophageal Reflux Disease: Active Hypertension See nurses notes PAST SURGICAL HISTORY elbow surgery SOCIAL HISTORY Smoking status: No Alcohol use: Yes Drug use: No ED COURSE MEDICATIONS GIVEN IN EMERGENCY DEPARTMENT IV SITE INFORMATION INTAKE OUTPUT REASSESMENT (most recent) 08:56 09/02/24. ( Pt arrives ambulatory to ER#6 c/o left sided posterior back/side pain. Pt offers he fell last Monday and then coughed hard last night and states he was not able to get up from bed without pain. PT has no obvious deformity noted. Pain worse with breathing). GENERAL / NEURO / PSYCH: Alert. Appears in no acute distress. HEENT: Mucous membranes are pink. RESPIRATORY: Respirations not labored. Breath sounds within normal limits. CVS: Normal sinus rhythm noted. Capillary refill less than 2 seconds. SKIN: Skin is warm and dry. VITAL SIGNS First Vitals Last Vitals Temp 08:48 09/02/24 97.5 F Temp 10:04 09/02/24 BP 08:48 09/02/24 135/89 BP 10:04 09/02/24 HR 08:48 09/02/24 70 HR 10:04 09/02/24 69 2 of 3 Visit Overview First Vitals Last Vitals RR 08:48 09/02/24 16 RR 10:04 09/02/24 O2 Sat 08:48 09/02/24 100% O2 Sat 10:04 09/02/24 98% Pain 08:48 09/02/24 9 Pain 10:04 09/02/24 ETCO2 08:48 09/02/24 ETCO2 10:04 09/02/24 GCS 08:48 09/02/24 GCS 10:04 09/02/24 RTS 08:48 09/02/24 RTS 10:04 09/02/24 PROCEDURES NURSING INTERVENTIONS LABS / STUDIES LABS / STUDIES ORDERED Ribs L w/Chest Expiration CLINICAL IMPRESSION ACUTE TRAUMATIC PAIN LEFT RIB FRACTURE 3 of 3 Normal [facility] ED VITALS FLOW SHEETon 09-02 ED VITALS FLOW SHEET Vitals Vital Sign Flow Sheet [address] [place] [address] [phone] 09/02/2024 Patient: SAMI MURDOCK Sex: Male : 1970 Age: 54y Measurements Wt: 88.5 kg, Ht/Raciel: 70.0 in, BMI: 27.98 Measured Time BP MAP HR RR O2Sat ETCO2 Temp Pain GCS RTS 10:04 09/02/2024 69 98% 10:02 09/02/2024 110/81 88 63 09:59 09/02/2024 70 97% 09:54 09/02/2024 62 95% 09:49 09/02/2024 65 95% 09:47 09/02/2024 124/86 96 66 09:44 09/02/2024 70 97% 09:39 09/02/2024 61 95% 09:34 09/02/2024 63 95% 09:33 09/02/2024 119/80 95 58 09:29 09/02/2024 63 94% 09:24 09/02/2024 59 96% 09:09 09/02/2024 58 96% 09:04 09/02/2024 62 98% 09:02 09/02/2024 114/73 89 57 1 of 2 Vitals Measured Time BP MAP HR RR O2Sat ETCO2 Temp Pain GCS RTS 08:59 09/02/2024 65 96% 08:54 09/02/2024 64 97% 08:48 09/02/2024 135/89 104 70 16 100% 97.5 F 9 2 of 2 Normal [facility] RIBS LT UNILAT W/CHEST EXPIR ATIONon 09-02-2024 RIBS LT UNILAT W/CHEST EXPIRATION [place] [address] Patient: SAMI MURDOCK Phone#: : 1970 Age: 54 Gender: M Pt. Type: ER Account: [id number] Location: [facility] Ordering: RAY VILLANUEVA Exam Date: 09/02/2024/9:22 Family Phys: Charge Code: [id number] Physician: Cidra Order #: [id number] Dose#: PROCEDURE: X-RAY RIBS LT UNILAT WITH EXPIRATION CHEST COMPARISON: None. INDICATIONS: Trauma. FINDINGS: LUNGS: Normal. No significant pulmonary parenchymal abnormalities. VASCULATURE: Normal. Unremarkable pulmonary vasculature. CARDIAC: Normal. No cardiac silhouette abnormality or cardiomegaly. MEDIASTINUM: Normal. No visible mass or adenopathy. PLEURA: Normal. No effusion or pleural thickening. BONES: Normal. No fracture or visible bony lesion. OTHER: Negative. CONCLUSION: No acute disease. Dictated by: Trudy Alvarez MD on 09/02/2024 at 9:46 Approved by: Trudy Alvarez MD on 09/02/2024 at 9:48 Normal [facility] Laboratory - Chemistry and C hemistry - challengeon 08-30-2023 Albumin [Mass/Vol] 4.6 g/dL Normal 3.6 - 5.1 g/dL [facility], [facility], [facility]. Albumin/Globulin [Mass ratio] 2.2 {ratio} Normal 1.0 - 2.5 [facility].; [facility], [facility]. ALP [Catalytic activity/Vol] 54 U/L Normal 35 - 144 U/L [facility], [facility].; [facility], [facility]. ALT [Catalytic activity/Vol] 35 U/L Normal 9 - 46 U/L [facility], [facility]. AST [Catalytic activity/Vol] 25 U/L Normal 10 - 35 U/L [facility], [facility].; [facility], [facility]. Bilirubin [Mass/Vol] 0.4 mg/dL Normal 0.2 - 1 .2 mg/dL [facility], [facility].; [facility], [facility]. Calcium [Mass/Vol] 9.4 mg/dL Normal 8.6 - 10. 3 mg/dL [facility], [facility].; [facility], [facility]. Chloride [Moles/Vol] 109 mmol/L Normal 98 - 11 0 mmol/L [facility]. Cholesterol [Mass/Vol] 207 mg/dL Abnormal [facility]. Cholesterol in HDL [Mass/Vol] 37 mg/dL Abnormal [facility]. Cholesterol in LDL [Mass/Vol] 142 mg/dL Abnormal [facility].; [facility] [employer] [facility], [facility]. CO2 [Moles/Vol] 23 mmol/L Normal 20 - 32 mmol/L [facility].; [facility] [employer] [facility], [facility]. Creatinine [Mass/Vol] 1.11 mg/dL Normal 0.70 - 1.30 mg/dL [facility], [facility].; [facility] [employer] [facility]. GFR/1.73 sq M.predicted among non-blacks MDRD (S/P/Bld) [Vol rate/Area] 79 mL/min/{1.73_m2} Normal [facility] [employer] [facility] Glucose [Mass/Vol] 99 mg/dL Normal 65 - 99 mg/dL [facility].; [facility], [facility] Potassium [Moles/Vol] 4.6 mmol/L Normal 3.5 - 5.3 mmol/L [facility]; [facility], [facility] Protein [Mass/Vol] 6.7 g/dL Normal 6.1 - 8.1 g/dL [facility]; [facility], [facility] Sodium [Moles/Vol] 143 mmol/L Normal 135 - 146 mmol/L [facility]; [facility] Triglyceride [Mass/Vol] 149 mg/dL Normal [facility]; [facility] Urea nitrogen [Mass/Vol] 20 mg/dL Normal 7 - 25 mg/dL [facility]; [facility] No Panel Informationon 08-30 BUN/CREATININE RATIO SEE NOTE: Normal 6 - [address] [facility]; [facility], [facility] CHOL/HDLC RATIO 5.6 Abnormal [facility]; [facility] GLOBULIN 2.1 Normal 1.9 - 3.7 [facility]; [facility] NON HDL CHOLESTEROL 170 Abnormal [facility]; [facility] PSA, TOTAL 0.43 ng/mL Normal [facility]; [facility] Vital Signs Date Time Vital Sign Value Performing Clinician Faci fidel 02-28-2025 10:44-0400 Body height 175.26 cm Froylan Bran LPN [facility]; [facility] 02-28-2025 10:44-0400 Body mass index (BMI) [Ratio] 27.47 kg/m2 Froylan Bran FILL TECHNICIAN [facility]; [facility] 02-28-2025 10:44-0400 Body surface area Derived from formula 2 m2 Froylan Bran LPN [facility]; [facility] 02-28-2025 10:44-0400 Body weight 84.37 kg Froylan Bran FILL TECHNICIAN [facility]; [facility] 02-28-2025 10:44-0400 Diastolic blood pressure 67 mm[Hg] Froylan Bran MART [facility] Comment on above: Patient Position: Si tting; Cuff Location: Left Arm; Cuff Size: Standard 02-28-2025 10:44-0400 Heart rate 62 /min Froylansherry Bran MART [facility] [employer] [facility]. Comment on above: Pattern: Regular 02-28-2025 10:44-0400 Systolic blood pressure 116 mm[Hg] Froylan Bran MART [facility] [employer] [facility]. Comment on above: Patient Position: Si tting; Cuff Location: Left Arm; Cuff Size: Standard 02-26-2024 11:00-0400 Diastolic blood pressure 88 mm[Hg] Luke Juanis PA-C Work Phone: [facility].; [employer]. Comment on above: Patient Position: Si tting; Cuff Location: Left Arm; Cuff Size: Standard 02-26-2024 11:00-0400 Heart rate 60 /min Luke Juanis PA-C Work Phone: [facility].; [employer]. Comment on above: Pattern: Regular 02-26-2024 11:00-0400 Systolic blood pressure 131 mm[Hg] Luke Juanis PA-C Work Phone: [facility].; [employer]. Comment on above: Patient Position: Si tting; Cuff Location: Left Arm; Cuff Size: Standard 02-26-2024 10:59-0400 Diastolic blood pressure 84 mm[Hg] Luke Juanis PA-C Work Phone: [facility].; [employer]. Comment on above: Patient Position: Si tting; Cuff Location: Left Arm; Cuff Size: Standard 02-26-2024 10:59-0400 Heart rate 59 /min Luke Juanis PA-C Work Phone: [facility] [place] [employer] [facility]. Comment on above: Pattern: Regular 02-26-2024 10:59-0400 Systolic blood pressure 129 mm[Hg] Thong Wagoner PA-C Work Phone: [facility] [employer] [facility]. Comment on above: Patient Position: Si tting; Cuff Location: Left Arm; Cuff Size: Standard 02-26-2024 09:25-0400 Body height 175.26 cm Tawnya Topete LPN [facility].; [facility] 02-26-2024 09:25-0400 Body mass index (BMI) [Ratio] 27.47 kg/m2 Tawnya Topete LPN [facility].; [facility] 02-26-2024 09:25-0400 Body surface area Derived from formula 2 m2 Tawnya Topete LPN [facility].; [facility] 02-26-2024 09:25-0400 Body weight 84.37 kg Tawnya Topete LPN [facility] [employer] [facility]. 02-26-2024 09:25-0400 Diastolic blood pressure 75 mm[Hg] Tawnya Topete LPN [facility] [place] [employer] [facility]. Comment on above: Patient Position: Si tting; Cuff Location: Left Arm; Cuff Size: Standard 02-26-2024 09:25-0400 Heart rate 64 /min Tawnya Topete LPN [facility] [employer] [facility]. Comment on above: Pattern: Regular 02-26-2024 09:25-0400 Systolic blood pressure 119 mm[Hg] Tawnya Topete LPN [facility].; [employer]. Comment on above: Patient Position: Si tting; Cuff Location: Left Arm; Cuff Size: Standard 08-30-2023 09:18-0500 Diastolic blood pressure 89 mm[Hg] Thong Wagoner PA-C Work Phone: [facility].; [employer]. Comment on above: Patient Position: Si tting; Cuff Location: Left Arm; Cuff Size: Standard 08-30-2023 09:18-0500 Systolic blood pressure 141 mm[Hg] Luke E Juanis PA-C Work Phone: [facility]; [employer]. Comment on above: Patient Position: Si tting; Cuff Location: Left Arm; Cuff Size: Standard 08-30-2023 08:42-0500 Body height 175.26 cm Luke E Juanis PA-C Work Phone: [facility].; [place] [employer] 08-30-2023 08:42-0500 Body mass index (BMI) [Ratio] 28.5 kg/m2 Luke E Juanis PA-C Work Phone: [facility].; [place] [employer] [facility] 08-30-2023 08:42-0500 Body surface area Derived from formula 2.03 m2 Luke E Juanis PA-C Work Phone: [facility].; [place] [employer] [facility] 08-30-2023 08:42-0500 Body weight 87.54 kg Luke E Juanis PA-C Work Phone: [facility] [employer] [place] [employer] [facility] 08-30-2023 08:42-0500 Diastolic blood pressure 90 mm[Hg] Luke E Juanis PA-C Work Phone: [place] [employer]; [employer]. Comment on above: Patient Position: Si tting; Cuff Location: Left Arm; Cuff Size: Standard 08-30-2023 08:42-0500 Heart rate 67 /min Luke E Juanis PA-C Work Phone: [place] [employer]; [employer]. Comment on above: Pattern: Regular 08-30-2023 08:42-0500 Systolic blood pressure 146 mm[Hg] Luke E Juanis PA-C Work Phone: [employer].; [employer]. Comment on above: Patient Position: Si tting; Cuff Location: Left Arm; Cuff Size: Standard Encounters Encounter Date Encounter Type Care Provider Facility Start: 04-25-2025 ambulatory Subhake Juanis Facili ty:[facility] Start: 03-03-2025 End: 03-03-2025 Orders Luke Juanis PA-C Work Phone: [employer]. Start: 02-28-2025 End: 02-28-2025 Office outpatient visit 25 minutes Luke Juanis PA-C Work Phone: [employer]. Start: 02-28-2025 Patient encounter procedure Luke Juanis PA-C Work Phone: [employer]. Start: 02-19-2025 Review Luke Hochstetl er PA-C Work Phone: [employer]. Start: 09-02-2024 ambulatory EVAN MARTINEZ [facility] Start: 09-02-2024 End: 09-02-2024 Emergency department patient visit [facility] Start: 02-26-2024 End: 02-28-2024 Orders Luke Juanis PA-C Work Phone: [employer]. Start: 02-26-2024 Review Luke Hochstetl er PA-C Work Phone: [employer]. Start: 02-26-2024 End: 02-26-2024 Patient encounter procedure Luke Juanis PA-C Work Phone: [employer]. Start: 08-31-2023 End: 08-31-2023 Historical Summary Luke Juanis PA-C Work Phone: [employer]. Start: 08-30-2023 End: 08-30-2023 Initial preventive medicine new patient 40-64yrs Luke Juanis PA-C Work Phone: [employer] Start: 08-30-2023 End: 08-30-2023 Physical examination Thong Wagoner PA-C Work Phone: [employer]; [employer] Procedures Date Procedure Procedure Detail Performing Clinician Start: 08-30-2023 End: 08-30-2023 Depression screening Thong Wagoner PA-C Work Phone: Start: 08-30-2023 End: 08-30-2023 Scr dep neg, no plan reqd Thong herrmann PA-C Work Phone: Plan of Treatment Date Care Activity Detail Author Start: 06-20-2025 Nursing evaluation o f patient and report Medical; [facility] Start: 20-Jun-2025 09:40-05:00 NURSE, FLOAT Appointment Request [employer] Start: 06-20-2025 Lipid panel LIPID PANEL (8 0061) Start: 20-Jun-2025 09:04-05:00 Request [employer]; [employer] Start: 02-28-2025 Assay of prostate sp ecific antigen total PSA TOTAL (PROSTATE SPECIFIC ANTIGEN) ([id number]) Start: 28-Feb-2025 11:05-04:00 Request [employer]; [employer]. Start: 02-28-2025 Lipid panel LIPID PANEL (8 0061) Start: 28-Feb-2025 11:05-04:00 Request [employer]; [employer]. Start: 02-28-2025 Comprehensive metabo lic panel CMP w/ GFR* (58576) Start: 28-Feb-2025 11:05-04:00 Request [employer]; [employer] Start: 02-28-2025 Patient encounter procedure Medical; EXTENDED RTN - RTN [employer] Start: 28-Feb-2025 11:00-04:00 DOUGLAS Wagoner Lub[place]ty E Appointment Request [employer] Start: 08-30-2023 Lipid panel LIPID PANEL (8 0061) Start: 30-Aug-2023 9:12 Request [employer].; [employer]. Start: 08-30-2023 Assay of prostate sp ecific antigen total PSA TOTAL (PROSTATE SPECIFIC ANTIGEN) (02497) Start: 30-Aug-2023 9:12 Request [employer].; [employer]. Start: 08-30-2023 Comprehensive metabo lic panel CMP w/ GFR* (21686) Start: 30-Aug-2023 9:11 Request [employer].; [employer]. Payers Date Payer Category Payer Self-pay 2025 Private Health Insurance [id number] 1970 Unknown [id number] Unknown [facility] Unknown [id number] Social History Date Type Detail Facility Alcohol Use: Alcohol Use: ; O ccasional alcohol use. [employer]. Caffeine Use Caffeine Use [employer]. Current Work/Study Status: Kasey harmon Work/Study Status: ; Full-time. [employer].; [employer]. Male [employer]. Work Phone: Full-time [employer]. Work Phone: Occasional alcohol use [facility] [employer]. Work Phone: Tobacco smoking consumption unknown [employer].; [employer]. Work Phone: Clinical Note 09-02-2024 Note Date & Type Note Facility 09-02-2024 Note Discharge Instructio ns Discharge Summary [facility] [address] [place] [address] [phone] 09/02/2024 Patient: SAMI MURDOCK Sex: Male : 1970 Age: 54y Thank you for visiting [facility]. You have been evaluated today by Ray Villanueva M.D. for the following condition(s): Principal Diagnosis Acute traumatic pain. Left rib fracture. INSTRUCTIONS No strenuous activity. OTC Medications: Take acetaminophen (Tylenol) and ibuprofen (such as Advil, Motrin or Nuprin) according to label instructions. Available over the counter. Follow-up: Follow up with your healthcare provider in three days if not better. Patient Signature Facility [employer] Date/Time 1 of 3 Discharge Instructions General Instructions with ExitWriter [address] [address] [phone] 09/02/2024 Patient: SAMI MURDOCK Sex: Male : 1970 Age: 54y Thank you for visiting [facility]. You have been evaluated today by Ray Villanueva M.D. for the following condition(s): Principal Diagnosis Acute traumatic pain. Left rib fracture. INSTRUCTIONS No strenuous activity. OTC Medications: Take acetaminophen (Tylenol) and ibuprofen (such as Advil, Motrin or Nuprin) according to label instructions. Available over the counter. Follow-up: Follow up with your healthcare provider in three days if not better. Activities Restrictions [address] [address] [phone] 09/02/2024 Patient: SAMI MURDOCK Sex: Male : 1970 Age: 54y You have been given the following instructions regarding activity, work, and/or school. No strenuous activity. 2 of 3 Discharge Instructions Facility [employer] 3 of 3 [facility] Summary Purpose Family History No Family History Records FoundNo Family History Records FoundNo Family History Records Found Advance Directives No Advanced Directives Records FoundNo Advanced Directives Records FoundNo Advanced Directives Records Found Additional Source Comments (unrecognized sect ion and content) No Status Records FoundNo Status Records FoundNo Status Records Found INFORMATION SOURCE (unrecogn ized section and content) DATE CREATED AUTHOR 09/02/2024 [facility] DATE CREATED AUTHOR AUTHOR'S ORGANIZ ATION 03/02/2025 [facility] DATE CREATED AUTHOR AUTHOR'S ORGANHARMEET ATION 04/23/2025 [facility] FOR RECORDS PERTAINING TO PATIENTS WHO ARE OR HAVE BEEN ENROLLED IN A CHEMICAL DEPENDENCY/SUBSTANCEABUSE PROGRAM, SOME INFORMATION MAY BE OMITTED. This clinical summary was aggregated from multiple sources. Caution should be exercised in using it in the provision of clinical care. This summary normalizes information from multiple sources, and as a consequence, information in this document may materially change the coding, format and clinical context of patient data. In addition, data may be omitted in some cases. CLINICAL DECISIONS SHOULD BE BASED ON THE PRIMARY CLINICAL RECORDS. [employer] [facility] provides no warranty or guarantee of the accuracy or completeness of information in this document.
[2025-04-25] MEDS: Lactated Ringers 1,000 ML 15 ML IV (07:58)
--- NOTE | 2025-04-25 08:03 | PCM.PRE.AN2 ---
ASA Classification* ASA Classification ASA Classification: 2 Assessment & Plan Anesthesia* Anesthesia Assessment Anesthesia Assessment: Discussed sedation and/or anesthesia options, risks, benefits, and alternatives with patient/parents/legal guardian/POA. Questions invited. The patient/parents/legal guardian/POA seems to understand and agrees to proceed with anesthesia plan. Reviewed the physical assessment, medical history, allergy history and patient home medications list prior to surgery/procedure/anesthetic and documented any changes. Performed airway and anesthesia risk assessments. 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 When Was Last Pacemaker Check QUESTION #4 FULL TEXT: You/Your Family Experience fever (hyperthermia) with Anesthesia Last Oral Intake Last Oral intake: Last Oral Intake NPO since 20:00 04/25/25 07:58 Meds taken in AM with sips of Yes 04/25/25 07:58 water? Meds patient instructed to omeprazole 04/25/25 07:58 take am of surgery PONV PONV - mold yard supervisor: PONV - mold yard supervisor Female No 04/22/25 10:53 HX of Motion Sickness No 04/22/25 10:53 HX of N/V After Surgery No 04/22/25 10:53 Non-Smoker Yes 04/22/25 10:53 Duration of Surgery greater No 04/22/25 10:53 than 60 minutes Number of Risk Factors 1 04/22/25 10:53 PONV Score Low Risk 04/22/25 10:53 Height & Weight Height & Weight: Anesthesia: Height & Weight Height 5 ft 9 in 04/25/25 07:58 Weight: 83 kg 04/25/25 07:58 Body Mass Index (BMI) 27.0 04/25/25 07:58 Respiratory Assessment Respiratory Assessment - mold yard supervisor: Respiratory Tract Infection Hx - mold yard supervisor Hx Respiratory Tract Infection No 04/22/25 10:53 STOP Sleep Apnea STOP Sleep Apnea - mold yard supervisor: STOP Sleep Apnea - mold yard supervisor Hx Hypertension Yes: CONTROLLED WITH MED 04/22/25 10:53 Hx Sleep Apnea No 04/22/25 10:53 CPAP BIPAP Do you snore loudly (louder No 04/22/25 10:53 than talking or can be heard Do you often feel tired/ No 04/22/25 10:53 fatigued/ sleepy during daytime? Has anyone observed you stop No 04/22/25 10:53 breathing during sleep? STOP Results Negative 04/22/25 10:53 QUESTION #5 FULL TEXT : Do you snore loudly (louder than talking or can be heard through closed doors)? 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 Specify any problems Hx of Preganancy in last 3 N/A 04/22/25 10:53 Months Nurse Filling Out Transfusion DSCHRIBER 04/22/25 10:53 & Questions: Date: 04/22/25 04/22/25 10:53 Time: 10:54 04/22/25 10:53 Patient unable to answer at this time (ie. confused, unrespo /Reproduction History /Reproductive History - mold yard supervisor: /Reproductive Hx- mold yard supervisor Hx Now No 04/22/25 10:53 Gestational Age (in weeks): EDC: Hx Hx Para Hx Section SAB No 04/22/25 10:53 Active Medications Active Medications: Current Medications Generic Name Dose Route Start Last Admin Trade Name Bernardo PRN Reason Stop Dose Admin Lactated Ringer's 1,000 mls @ 15 mls/hr 04/25/25 07:45 04/25/25 07:58 IV 15 mls/hr .Q48H ESTELITA Administration PFSH Medical History Alcohol use High cholesterol Gastric reflux Non-smoker Hypertension Bone fracture Home Medications ?Medication ?Instructions ?Recorded ?Last Taken ?Type atorvastatin 20 mg tablet 20 mg PO QHS 04/22/25 Unknown History lisinopril 10 mg tablet 10 mg PO DAILY 04/22/25 Unknown History omeprazole 40 mg capsule,delayed 40 mg PO DAILY 04/22/25 04/25/25 History release Allergy/AdvReac Type Severity Reaction Status Date / Time No Known Allergies Allergy Verified 04/25/25 07:53 Family History Grandmother Diabetes Grandmother Cancer Surgical History History of esophagogastroduodenoscopy (EGD) History of orthopedic surgery Social History Smoking Status: Never smoker alcohol intake: current alcohol intake frequency: holidays/special occasions only substance use type: does not use what type of physical activity do you participate in: walking and running Review of Systems (Anesthesia) ROS Narrative System reviewed and no additional complaints, except as documented.
--- NOTE | 2025-04-25 08:22 | PCM.HP.STD ---
HPI - General General Date of Admission: 04/25/25 Date of Service: 04/25/25 Chief Complaint: Screening colonoscopy HPI Narrative SAMI MURDOCK, is a 54 M who presents for his first colonoscopy. He has no family history of colon polyps or colon cancers to his knowledge. He denies any recent GI symptoms or problems. No black or tarry stools. No constipation or diarrhea have a chronic nature [facility] Medical History Alcohol use High cholesterol Gastric reflux Non-smoker Hypertension Bone fracture Home Medications ?Medication ?Instructions ?Recorded ?Last Taken ?Type atorvastatin 20 mg tablet 20 mg PO QHS 04/22/25 Unknown History lisinopril 10 mg tablet 10 mg PO DAILY 04/22/25 Unknown History omeprazole 40 mg capsule,delayed 40 mg PO DAILY 04/22/25 04/25/25 History release Allergy/AdvReac Type Severity Reaction Status Date / Time No Known Allergies Allergy Verified 04/25/25 07:53 Family History Grandmother Diabetes Grandmother Cancer Surgical History History of esophagogastroduodenoscopy (EGD) History of orthopedic surgery Social History Smoking Status: Never smoker alcohol intake: current alcohol intake frequency: holidays/special occasions only substance use type: does not use what type of physical activity do you participate in: walking and running Vital Signs Vital Signs Vital Signs: 04/25/25 07:58 04/25/25 07:58 04/25/25 08:03 Temperature 97 F L 97 F L Temperature Source Temporal Pulse Rate 58 L 58 L Respiratory Rate 16 16 Respiratory Pattern Normal Blood Pressure 130/86 H 130/86 H Blood Pressure Mean 100 Blood Pressure Source Monitor Blood Pressure Position Sitting Blood Pressure Location Left Arm Pulse Ox 100 100 Oxygen Delivery Method Room Air Weight Weight: 182 lb 15.739 oz Body Mass Index (BMI) 27.0 Physical Exam Const alert, oriented x3 and no apparent distress HEENT normocephalic Eyes PERRL GI normal to inspection, nondistended, normoactive bowel sounds
--- NOTE | 2025-04-25 08:30 | COLBX_PTH ---
PATIENT: SAMI MURDOCK LOC: EN U#:[id number] AGE/SX: 54/M ROOM: RE04/25/[address]: Dr. Martinez Mancuso MD : 1970 BED: DIS: 04/25/2025 SPEC #: [id number] RECD: 04/25/25 09:32 STATUS: WILEY REShamar #: [id number] SUMANTH: 04/25/25 08:[address]: Martinez Mancuso DEPT: SURGICAL PATHOLOGY RECD BY: Wilfredo Vargas ENTERED: 04/25/25 13:00 SP TYPE: COLON BX OTHR DR: TEN Tovar Tissues: A - Rectum, NOS Procedures: Surgery Specimen Level IV HEADER OPERATION: Colonoscopy, biopsy PRE-OP DIAGNOSIS: Screening colonoscopy TISSUE SUBMITTED: A- Rectal polyp biopsy MICROSCOPIC DIAGNOSIS A. Rectum, polyp, biopsy: * Hyperplastic polyp. MICROSCOPIC DESCRIPTION Slides are reviewed. GROSS DESCRIPTION A. Received in fixative is one container labeled with the patient's name and designated Rectal polyp biopsy. The specimen consists of one irregular fragment of light lin soft tissue that measures 0.7 cm. The specimen is totally submitted in one cassette. LA 04/25/2025 CPT:39147
--- NOTE | 2025-04-25 09:07 | PCM.POST.ANE ---
Anesthesia: Postop Eval I Current Vital Signs Temperature: 97 F Pulse Rate: 61 Blood Pressure: 98/62 Respiratory Rate: 16 Pulse Ox: 97 Oxygen Delivery Method: Room Air Assessment Airway patent: Yes Spontaneous unlabored respirations: Yes Mental status: Asleep nausea: No Vomiting: No Anesthesia Complication: No Fluid Hydration Crystalloid volume administer (ml): 400 Total IV fluid infused: 400 Progress Note Anesthesia document: Postop Eval 1 completed: Yes
--- NOTE | 2025-04-25 09:12 | OP.PROVAT_ITS ---
04/25/2025 Dhruv Tovar Re : Colonoscopy procedure for Inocencio Perales Rizwana This procedure was performed on Friday, April 25, 2025. My impressions and recommendations are as follows: Impressions : - Non-bleeding internal hemorrhoids. - One 3 mm polyp in the rectum, removed with a cold biopsy forceps. Resected and retrieved. - The examination was otherwise normal on direct and retroflexion views. Recommendations : - Discharge patient to home (ambulatory). - High fiber diet. - Await pathology results. - Repeat colonoscopy in 5-10 years for surveillance based on pathology results. - Return to my office PRN. - Continue present medications. My findings are described in the full procedure note, which is enclosed. If I can be of further assistance, please feel free to contact me at . Sincerely, Martinez Mancuso MD 04/25/2025 9:11:50 AM This report has been signed electronically.
--- NOTE | 2025-04-25 09:12 | OP.COLON_ITS ---
Patient Name: Inocencio Shetty Procedure Date: 04/25/2025 8:08 AM Date of : 1970 Age: 54 Procedure: Colonoscopy Indications: Screening for colorectal malignant neoplasm Providers: Martinez Mancuso MD Referring MD: Dhruv Tovar Medicines: Monitored Anesthesia Care Patient Profile: Refer to note in patient chart for documentation of history and physical. Last Colonoscopy: none. The patient's first colonoscopy is today. Complications: No immediate complications. Estimated blood loss: Minimal. Procedure: Pre-Anesthesia Assessment: - Prior to the procedure, a History and Physical was performed, and patient medications and allergies were reviewed. The patient's tolerance of previous anesthesia was also reviewed. The risks and benefits of the procedure and the sedation options and risks were discussed with the patient. All questions were answered, and informed consent was obtained. Prior Anticoagulants: The patient has taken no anticoagulant or antiplatelet agents. ASA Grade Assessment: II - A patient with mild systemic disease. After reviewing the risks and benefits, the patient was deemed in satisfactory condition to undergo the procedure. After I obtained informed consent, the scope was passed under direct vision. Throughout the procedure, the patient's blood pressure, pulse, and oxygen saturations were monitored continuously. The colonoscope was introduced through the anus and advanced to the cecum, identified by appendiceal orifice and ileocecal valve. The ileocecal valve, appendiceal orifice, and rectum were photographed. The ileocecal valve, appendiceal orifice, and rectum were photographed. The entire colon was well visualized. The colonoscopy was performed without difficulty. The patient tolerated the procedure well. The quality of the bowel preparation was adequate. Moderate Sedation: See the other procedure note for documentation of moderate sedation with intraservice time. Scope In: 8:35:28 AM Scope Withdrawal Time 0 hours 12 minutes 26 seconds Scope Out: 8:58:06 AM Total Procedure Duration Time 0 hours 22 minutes 38 seconds Findings: The perianal and digital rectal examinations were normal. Non-bleeding internal hemorrhoids were found during retroflexion. The hemorrhoids were moderate. A 3 mm polyp was found in the rectum. The polyp was hyperplastic. The polyp was removed with a cold biopsy forceps. Resection and retrieval were complete. Verification of patient identification for the specimen was done by the nurse using the patient's name, date and medical record number. Estimated blood loss was minimal. The exam was otherwise without abnormality on direct and retroflexion views. Impression: - Non-bleeding internal hemorrhoids. - One 3 mm polyp in the rectum, removed with a cold biopsy forceps. Resected and retrieved. - The examination was otherwise normal on direct and retroflexion views. Recommendation: - Discharge patient to home (ambulatory). - High fiber diet. - Await pathology results. - Repeat colonoscopy in 5-10 years for surveillance based on pathology results. - Return to my office PRN. - Continue present medications. Procedure Code(s): --- Professional --- 67813, Colonoscopy, flexible; with biopsy, single or multiple Diagnosis Code(s): --- Professional --- Z12.11, Encounter for screening for malignant neoplasm of colon D12.8, Benign neoplasm of rectum K64.8, Other hemorrhoids CPT copyright 2021 [employer]. All rights reserved. The codes documented in this report are preliminary and upon foot cutter review may be revised to meet current compliance requirements. Martinez Mancuso MD 04/25/2025 9:11:50 AM This report has been signed electronically. Number of Addenda: 0 Note Initiated On: 04/25/2025 8:08 AM
--- NOTE | 2025-04-25 13:11 | POSTOPAN2_ITS ---
Anesthesia Postop Eval I Sum Postop Eval Completion status Anesthesia document: Postop Eval 1 completed: Yes Anesthesia Postop Eval I Summary Anesthesia Postop Eval I Summary: Anesthesia Postop Eval I: Assessment Summary Airway patent Yes 04/25/25 09:07 RN [email or web address] Spontaneous unlabored Yes 04/25/25 09:07 RN [email or web address] respirations Mental status Asleep 04/25/25 09:07 RN [email or web address] nausea No 04/25/25 09:07 RN [email or web address] Vomiting No 04/25/25 09:07 RN [email or web address] Anesthesia Postop Eval I: Fluid Summary Crystalloid volume administer 400 04/25/25 09:07 RN [email or web address] (ml) Colloids volume administered ( ml) Blood Product volume administered (ml) Total IV fluid infused 400 04/25/25 09:07 RN [email or web address] Anesthesia Postop Eval I: Summary Notes Anesthesia Complication No 04/25/25 09:07 RN [email or web address] Anesthesia Complication Comment: Post-operative progress note Anesthesia: Postop Eval II Evaluation Mental status: Awake Pain Level: 1 nausea: No Vomiting: No
--- NOTE | 2025-04-25 13:11 | PCM.POSTANE2 ---
Anesthesia Postop Eval I Sum Postop Eval Completion status Anesthesia document: Postop Eval 1 completed: Yes Anesthesia Postop Eval I Summary Anesthesia Postop Eval I Summary: Anesthesia Postop Eval I: Assessment Summary Airway patent Yes 04/25/25 09:07 [email or web address] Spontaneous unlabored Yes 04/25/25 09:07 [email or web address] respirations Mental status Asleep 04/25/25 09:07 [email or web address] nausea No 04/25/25 09:07 [email or web address] Vomiting No 04/25/25 09:07 [email or web address] Anesthesia Postop Eval I: Fluid Summary Crystalloid volume administer 400 04/25/25 09:07 [email or web address] (ml) Colloids volume administered ( ml) Blood Product volume administered (ml) Total IV fluid infused 400 04/25/25 09:07 [email or web address] Anesthesia Postop Eval I: Summary Notes Anesthesia Complication No 04/25/25 09:07 [email or web address] Anesthesia Complication Comment: Post-operative progress note Anesthesia: Postop Eval II Evaluation Mental status: Awake Pain Level: 1 nausea: No Vomiting: No
== END 2025-04-25 09:40 | disposition home or self-care (01) ==
LOC: EN 07:29 → AC 07:31
PROVIDERS: PCP Physician Assistant; Referring Provider Physician Assistant; Visit Provider Surgery
PROC: 0DJD8ZZ Inspection of Lower Intestinal Tract, Via Natural or Artificial Opening Endoscopic (ICD-10-PCS; CPT 45378; principal; 2025-04-25 08:25)
DX: Z12.11 Encounter for screening for malignant neoplasm of colon (principal); K64.8 Other hemorrhoids; K21.9 Gastro-esophageal reflux disease without esophagitis; I10 Essential (primary) hypertension; E78.00 Pure hypercholesterolemia, unspecified; K62.1 Rectal polyp
CPT/HCPCS: 45380; 88305